=== PATIENT | female | born 1985 | race Caucasian/White ===

== ENCOUNTER 2021-11-06 16:12 | Emergency (ER) | payer OTHER ==
[~2021-11-06] VITALS: Ht 157.4 cm; Wt 53.1 kg
[~2021-11-06 16:12] MED LIST: BUPRENORPHINE-N1 TAB SL; CLINDAMYCIN HC300 MG PO; FLEXERIL10 MG PO; MEDROL DOSEPAK4 MG PO; MOTRIN800 MG PO; Motrin,Rufen800 MG; Motrin,Rufen800 MG PO; NAPROSYN500 MG PO; NKHM; SUBOXONE 8 MG-1 EACH SL; TRAMADOL HCL50 MG PO; ULTRAM50 MG PO
== END 2021-11-06 19:03 | disposition home or self-care (01) ==
LOC: ED 16:12
DX: I16.0 Hypertensive urgency (principal)